=== PATIENT | female | born 1960 | race Caucasian/White ===

== ENCOUNTER → 2019-03-20 | Outpatient (CLI) | payer OTHER ==
--- NOTE | 2019-03-21 07:53 | Diagnostic Imaging Report ---
TECHNIQUE: Magnetic resonance imaging of the LEFT KNEE was performed WITHOUT injected contrast. HISTORY: LEFT KNEE MENISCUS INJURY , injury, swelling on back of knee COMPARISON: None available. FINDINGS: LIGAMENTS AND TENDONS: ACL: Intact, minimal intrasubstance degeneration. PCL: Intact Collateral ligaments: Intact Iliotibial band: Unremarkable Popliteal tendon: Intact Extensor mechanism: Intact, minimal proximal patellar tendinosis. JOINT: Menisci: Medial: Minimal free margin fraying. Lateral: Minimal free margin fraying. Articular Cartilage: Medial Compartment: Intermediate to high-grade erosions of the weightbearing cartilage. Lateral Compartment: No focal defect. Patellofemoral Compartment: Full-thickness erosion at the patellar apex and adjacent medial facet. Joint Fluid: Synovitis and trace nonspecific joint effusion. A decompressed Tovar's cyst with fluid signal intensity extending from the inferior aspect of the cyst along the medial and deep margin of the medial head of the gastrocnemius. BONES: No focal or infiltrative bone marrow replacing abnormality. No acute fracture. SOFT TISSUES: Medial head of the gastrocnemius tendon near the femoral insertion. IMPRESSION: 1. Findings compatible with a ruptured and decompressed Tovar's cyst. 2. Patellofemoral compartment predominant degenerative changes. Signed by: Dr. Rogers Tinsley D.O., M.M.M. on 03/21/2019 7:49 AM
== END ==
LOC: MRI 15:05
PROVIDERS: ATTEND Family Medicine
DX: S83.8X2A Sprain of other specified parts of left knee, initial encounter (principal)

== ENCOUNTER → 2021-11-08 | Outpatient (CLI) | payer OTHER | LOC: CT 14:38 | PROVIDERS: ATTEND Family Medicine | DX: J01.90 Acute sinusitis, unspecified (principal) | CPT/HCPCS: 70486 ==